=== PATIENT | male | born 1940 | race Caucasian/White ===

== ENCOUNTER 2022-10-02 14:34 | Inpatient (IN) | payer MEDICARE, OTHER ==
[~2022-10-02] VITALS: Ht 165.1 cm; Wt 67.4 kg
[~2022-10-02 14:34] MED LIST: LEVO1TAB39 PO; LEVO300T21 PO; LOSA50TA28 PO; METO25TA4 PO; NOXI1TAB PO; SIMV-253 PO; SYNT50TA PO; VITA100093 PO
[2022-10-02 19:33] LABS: BASO % 0.4 % (0.0-1.0); EOS # 0.2 10^3/uL (0.0-0.5); EOS % 1.4 % (0.0-3.0); HEMATOCRIT 47.7 % (42.0-52.0); HEMOGLOBIN 15.1 g/dl (13.5-17.5); LYMPH # 3.8 10^3/uL (1.5-5.0); LYMPH % 33.8 % (24.0-44.0); MEAN CORPUSCULAR HEMOGLOBIN 29.9 pg (27.0-33.0); MEAN CORPUSCULAR HGB CONC 31.7 g/dl (32.0-36.5); MEAN CORPUSCULAR VOLUME 94.5 fl (80.0-96.0); MONO # 0.7 10^3/uL (0.0-0.8); MONO % 6.1 % (2.0-8.0); NEUTROPHILS # 6.5 10^3/uL (1.5-8.5); NEUTROPHILS % 57.9 % (36.0-66.0); PLATELET COUNT, AUTOMATED 238 10^3/uL (150-450); RED BLOOD COUNT 5.05 10^6/uL (4.30-6.10); WHITE BLOOD COUNT 11.3 10^3/uL (4.0-10.0)
[2022-10-02 20:08] LABS: BILIRUBIN,DIRECT 0.3 MG/DL (<0.4)
[2022-10-02 22:46] LABS: BILIRUBIN,TOTAL 0.9 MG/DL (0.3-1.2); CALCIUM LEVEL 10.3 MG/DL (8.3-10.6); CREATININE FOR GFR 1.37 MG/DL (0.70-1.30); GLOMERULAR FILTRATION RATE 53.1 (>35); TOTAL PROTEIN 7.4 G/DL (5.7-8.2)
[2022-10-02] MEDS ORDERED: NS 1,000 ML IV ONE (23:00)
[2022-10-02] MEDS ORDERED: metroNIDAZOLE 500 MG in IV 1 EA IV ONE (23:05)
[2022-10-02] MEDS ORDERED: CIPROFLOXACIN 400 MG in IV 1 EA IV ONE (23:05)
[2022-10-02] MEDS ORDERED: ISOVUE-370 76% 100ML VIAL As Ordered ONE (23:07)
[2022-10-03 00:12] LABS: RSV AMPLIFICATION NEGATIVE (NEGATIVE)
[2022-10-03] MEDS ORDERED: HOME MED LIST COMPLETE! XX SCH (01:35)
[2022-10-03] MEDS ORDERED: HYDROMORPHONE HCL 0.5 MG/ 0.5 ML SYRINGE (J1170 PER 1) IV PRN (01:55)
[2022-10-03] MEDS ORDERED: NS 1,000 ML IV SCH (01:55)
[2022-10-03 02:18] VITALS: BP 163/88
[2022-10-03 06:00] VITALS: BP 130/73
[2022-10-03] MEDS ORDERED: LEVOTHYROXINE 50MCG TABLET (0.05MG) PO SCH (06:00)
[2022-10-03 06:08] LABS: ALBUMIN 3.3 G/DL (3.2-5.2); ALKALINE PHOSPHATASE 53 U/L (46-116); ALT/SGPT < 9 U/L (7.0-40); AST/SGOT 13 U/L (<34); BILIRUBIN,TOTAL 0.9 MG/DL (0.3-1.2); BLOOD UREA NITROGEN 20 MG/DL (9-23); CALCIUM LEVEL 9.2 MG/DL (8.3-10.6); CARBON DIOXIDE LEVEL 22 MMOL/L (20-31); CHLORIDE LEVEL 109 MMOL/L (98-107); CREATININE FOR GFR 1.34 MG/DL (0.70-1.30); GLOMERULAR FILTRATION RATE 54.5 (>35); GLUCOSE, FASTING 98 MG/DL (74-106); POTASSIUM SERUM 4.1 MMOL/L (3.5-5.1); SODIUM LEVEL 143 MMOL/L (136-145); TOTAL PROTEIN 5.8 G/DL (5.7-8.2)
[2022-10-03] MEDS ORDERED: metroNIDAZOLE 500 MG in IV 1 EA IV SCH (07:00)
[2022-10-03] MEDS ORDERED: METOPROLOL TART 25 MG TABLET PO SCH (09:00)
[2022-10-03] MEDS ORDERED: LOSARTAN 50MG TABLET PO SCH (09:00)
[2022-10-03] MEDS ORDERED: diazePAM 5MG TABLET PO ONE (11:00)
[2022-10-03] MEDS ORDERED: CIPROFLOXACIN 400 MG in IV 1 EA IV SCH (12:00)
[2022-10-03 13:25] VITALS: BP 131/74
[2022-10-03 14:00] VITALS: BP 130/75
[2022-10-03] MEDS ORDERED: LR 1,000 ML IV SCH (14:00)
[2022-10-03] MEDS ORDERED: CIPR-249 PO (14:15)
[2022-10-03] MEDS ORDERED: METR-265 PO (14:15)
[2022-10-03] MEDS ORDERED: SIMVASTATIN 20 MG TAB PO SCH (21:00)
== END 2022-10-03 15:32 | disposition home or self-care (01) | DRG 446 ==
LOC: M ED 14:34 → M ED INP 23:57 → ENRESERVTM 10-03 00:48 → ENRESERVDT 10-03 00:48 → M MSPAV 10-03 02:10
PROVIDERS: ADMIT Internal Medicine; ATTEND Student in an Organized Health Care Education/Training Program
DX: K80.62 Calculus of gallbladder and bile duct with acute cholecystitis without obstruction (principal); E03.9 Hypothyroidism, unspecified; I12.9 Hypertensive chronic kidney disease with stage 1 through stage 4 chronic kidney disease, or unspecified chronic kidney disease; N40.0 Benign prostatic hyperplasia without lower urinary tract symptoms; N18.30 Chronic kidney disease, stage 3 unspecified; Z79.890 Hormone replacement therapy; Z79.899 Other long term (current) drug therapy; Z88.0 Allergy status to penicillin